=== PATIENT | female | born 1940 | race Caucasian/White ===

== ENCOUNTER 2016-07-03 09:42 | Inpatient (IN) ==
[2016-07-03] MEDS ORDERED: Albuterol 2.5 MG/3 ML NEBULIZER IH ONE (10:11)
[2016-07-03] MEDS ORDERED: methylPREDNISolone 125 MG/2 ML VIAL IVP ONE (10:11)
[2016-07-03] MEDS ORDERED: Ipratropium/Albuterol Neb 3 ML IH ONE (10:11)
[2016-07-03 10:27] LABS: Hematocrit 42.3 % (35.3-44.9); Hemoglobin 14.1 g/dL (11.5-15.4); Mean Corpuscular HGB Conc 33.3 g/dL (31.6-35.5); Mean Corpuscular Hemoglobin 28.6 pg (28.0-33.3); Mean Corpuscular Volume 85.8 fL (83.0-100.0); Mean Platelet Volume 9.5 fL (9.4-12.4); Platelet Count 243 K/mcL (140-400); Red Blood Count 4.93 M/mcL (3.82-4.97); Red Cell Distribution Width 13.5 % (11.5-14.5)
--- NOTE | 2016-07-03 10:28 | Emergency Department Note ---
Disposition Clinical Impression: Acute exacerbation of chronic obstructive airways disease Dyspnea Qualifiers: Dyspnea type: dyspnea on exertion Qualified Code(s): R06.09 - Other forms of dyspnea Disposition: Home, Self-Care Condition: Good Time of Disposition: 11:45 SOB HPI - General Chief Complaint: ED Shortness of Breath/Dyspnea Stated Complaint: cough,varinder Time Seen by Provider: 07/03/16 09:53 Source: patient Limitations: no limitations Nursing Notes Reviewed: Yes Vital Signs Reviewed: Yes - History of Present Illness 75-year-old female presents with concerns of increasing shortness of breath and cough. Patient states symptoms have worsened over the past week however she has been increasingly short of breath over the past 2 months. Patient was seen in urgent care yesterday, had a chest x-ray which showed vascular congestion. Patient was given IM Rocephin, IM Solu-Medrol, started on a Medrol Dosepak as well as a Z-Sathish. She has taken 1 dose of azithromycin but did not start the Medrol Dosepak. Patient states that she feels the same as she did yesterday but does not feels improved which is why she wanted to be evaluated in the emergency department. Pt denies chest pain, palpitations, nausea, diaphoresis. Patient is able to lay flat at night without difficulty. + Mild bilateral trace pitting edema. Patient smoked many years ago but not recently. No history of COPD. - Related Data Home Medications Medication Instructions Recorded Confirmed Aspirin 81 mg PO DAILY 11/18/14 07/03/16 Citalopram [CeleXA] 20 mg PO BID 11/18/14 07/03/16 Hydrochlorothiazide [Microzide] 12.5 mg PO QAM 11/18/14 07/03/16 Metoprolol [Lopressor] 100 mg PO BID 11/18/14 07/03/16 Omeprazole [PriLOSEC] 40 mg PO BID 11/18/14 07/03/16 Azithromycin [Azithromycin 6-Tab 250 mg PO PER PKG DI 07/03/16 07/03/16 Pack] MethylPREDNISolone 4 mg PO AD 07/03/16 07/03/16 [MethylPREDNISolone Dose Pack] Tramadol HCl [Ultram] 50 mg PO BID PRN 07/03/16 07/03/16 Allergies Allergy/AdvReac Type Severity Reaction Status Date / Time sleep medication AdvReac See Uncoded 01/04/16 15:27 Comments All systems ED: reviewed and negative except as stated. Constitutional: Reports: weakness. Denies: fever, chills Cardiovascular: Denies: chest pain, palpitations, dyspnea on exertion Respiratory: Reports: cough, dyspnea, wheezes Past Medical History - Past Medical History Attestation: Yes The following information was validated with the patient. Source: patient Medical history: Reports: arthritis, atrial fibrillation, GERD, other Surgical history: Reports: appendectomy, cholecystectomy, hysterectomy, knee replacement, other Psychiatric history: Reports: depression - Social History Smoking Status: Former smoker Smokeless Tobacco Status: No Alcohol use: Reports: none Drug use: Reports: none Physical Exam General: Alert and in no acute distress Skin: Warm, dry, intact Head: Normocephalic and atraumatic Neck: Supple, trachea midline and no tenderness Cardiovascular: RRR, no murmur, normal perfusion. Trace bilateral pitting edema Respiratory: Wheezing and rhonchi present in the bilateral posterior lung omalley Musculoskeletal: Normal strength, no tenderness, swelling or deformity GI: Soft, nontender, nondistended. Bowel sounds present Neuro: A&O to person, place, time and situation. No focal deficits noted on exam Psychiatric: cooperative and appropriate mood and affect. - General Limitations: no limitations General appearance: alert, in no apparent distress Course Vital Signs Temperature 97.8 F 07/03/16 09:44 Pulse Rate 97 07/03/16 09:44 Respiratory Rate 19 07/03/16 09:44 Blood Pressure 96/63 07/03/16 09:44 O2 Sat by Pulse Oximetry 91 07/03/16 09:44 Temperature 97.9 F 07/03/16 18:48 Pulse Rate 92 07/03/16 18:48 Respiratory Rate 23 07/03/16 18:48 Blood Pressure 121/76 07/03/16 18:48 O2 Sat by Pulse Oximetry 95 07/03/16 18:48 Oxygen Delivery Oxygen Delivery Nasal Cannula Shortness of Breath/Dyspnea - [facility] Narrative Medical decision making narrative: Patient breathing improved after treatment with DuoNeb. However now patient has audible wheezing during examination. Patient satting 88% and is visibly dyspneic during conversation. No accessory muscle seen however patient will likely need admission to the hospital for further evaluation of likely COPD exacerbation. Patient felt comfortable with this plan. She was given Solu- Medrol in the emergency department. - Medical Records Medical records reviewed: Yes I reviewed the patient's medical records. - Lab Data Lab results reviewed: Yes I reviewed the patient's lab results. Result diagrams: 07/03/16 10:20 07/03/16 10:20 Lab Results 07/03/16 07/03/16 07/03/16 Range/Units 10:20 10:20 10:20 WBC 9.0 (4.3-11.1) K/mcL RBC 4.93 (3.82-4.97) M/mcL Hgb 14.1 (11.5-15.4) g/dL Hct 42.3 (35.3-44.9) % MCV 85.8 (83.0-100.0) fL MCH 28.6 (28.0-33.3) pg MCHC 33.3 (31.6-35.5) g/dL RDW 13.5 (11.5-14.5) % Plt Count 243 (140-400) K/mcL MPV 9.5 (9.4-12.4) fL Seg Neutrophils % 88.0 % Band Neutrophils % 6.0 H (0-4) % Lymphocytes % 4.0 % Monocytes % 2.0 % Neutrophils # 8.5 (1.6-8.9) K/mcL Lymphocytes # 0.4 L (0.6-4.6) K/mcL Monocytes # 0.2 (0.0-1.3) K/mcL Platelet Estimate Normal (Normal) Sodium 136 (136-145) mEq/L Potassium 3.3 L (3.5-4.5) mEq/L Chloride 96 L (98-109) mEq/L Carbon Dioxide 25 (19-29) mEq/L BUN 15 (7-20) mg/dL Creatinine 0.81 (0.57-1.11) mg/dL Est GFR ( Amer) > 60 (> 60) Est GFR (Non-Af Amer) > 60 (> 60) BUN/Creatinine Ratio 19 (6-26) Glucose 138 H (70-99) mg/dL Calculated Osmolality 285 (280-300) Calcium 8.9 (8.6-10.8) mg/dL Troponin I 0.00 (0-0.03) ng/mL B-Natriuretic Peptide (0-100) pg/mL 07/03/16 Range/Units 10:20 WBC (4.3-11.1) K/mcL RBC (3.82-4.97) M/mcL Hgb (11.5-15.4) g/dL Hct (35.3-44.9) % MCV (83.0-100.0) fL MCH (28.0-33.3) pg MCHC (31.6-35.5) g/dL RDW (11.5-14.5) % Plt Count (140-400) K/mcL MPV (9.4-12.4) fL Seg Neutrophils % % Band Neutrophils % (0-4) % Lymphocytes % % Monocytes % % Neutrophils # (1.6-8.9) K/mcL Lymphocytes # (0.6-4.6) K/mcL Monocytes # (0.0-1.3) K/mcL Platelet Estimate (Normal) Sodium (136-145) mEq/L Potassium (3.5-4.5) mEq/L Chloride (98-109) mEq/L Carbon Dioxide (19-29) mEq/L BUN (7-20) mg/dL Creatinine (0.57-1.11) mg/dL Est GFR ( Amer) (> 60) Est GFR (Non-Af Amer) (> 60) BUN/Creatinine Ratio (6-26) Glucose (70-99) mg/dL Calculated Osmolality (280-300) Calcium (8.6-10.8) mg/dL Troponin I (0-0.03) ng/mL B-Natriuretic Peptide 178 H (0-100) pg/mL - Radiology Data Radiology results reviewed: Yes I reviewed the patient's radiology results. - EKG Data EKG attestation: Yes I reviewed and interpreted this EKG. EKG results narrative: ECG - interpreted by ED physician. Rate 97 atrial fibrillation, no STEMI
[2016-07-03 10:40] LABS: BUN/Creatinine Ratio 19 (6-26); Blood Urea Nitrogen 15 mg/dL (7-20); Calcium 8.9 mg/dL (8.6-10.8); Carbon Dioxide 25 mEq/L (19-29); Chloride 96 mEq/L (98-109); Glucose 138 mg/dL (70-99); Osmolality,Calculated 285 (280-300); Potassium 3.3 mEq/L (3.5-4.5); Sodium 136 mEq/L (136-145); eGFR For African Americans > 60 (> 60); eGFR For Non-African Americans > 60 (> 60)
[2016-07-03 10:52] LABS: Lymphocytes # 0.4 K/mcL (0.6-4.6); Monocytes # 0.2 K/mcL (0.0-1.3); Neutrophils # 8.5 K/mcL (1.6-8.9); Platelet Estimate Normal (Normal)
[2016-07-03] MEDS ORDERED: Naloxone 0.4 MG/ML INJ IVP PRN (12:29)
[2016-07-03] MEDS ORDERED: *HR* OxyCODONE/APAP 5/325 TABLET PO PRN (12:30)
--- NOTE | 2016-07-03 13:29 | Internal Med History&Physical ---
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 followed by Dr. Maxwell, last visit was on 02/13/16. she has been under observation. CT abdomen was negative for any metastatic disease. Octreotide scan was negative. She also has theron lung nodules stable. given recent worsening of dyspnea with no prior history of COPD or asthma or CHF, would repeat the CT chest as planned by oncology in the last visit. We will consult as needed. (2) Dyspnea Current visit: Yes Status: Acute unclear etiology. CXR shows features of bronchitis, she has no h.o COPD or asthma and has a very remote history of smoking. she has h/o carcinoid lung, unclear if this is a flare up will order CT chest, order urine 5 hydroxy indole acetic acid/chromogranin levels. consult oncology based on these lab results. for now, will continue duonebs as scheduled. I dont think she needs IV steroids at this time, unclear if COPD/asthma , will have to be a new diagnosis now as she does not have prior history. will check CT chest results first. will order flu test and respiratory panel as well/ continue oxygen at 2 l to maintain sats>95%. Qualifiers: Dyspnea type: dyspnea on exertion Qualified Code(s): R06.09 - Other forms of dyspnea Internal Medicine - H&P: HPI Chief complaint: sob Admitted From: Home Plans for Post Hospital Care: Home History of present illness: Ms. Fenton is a 75 year old female with past medical history of carcinoid lung with right infrahilar mass, follows with oncology, last visit was 6 months ago. Patient presented with symptoms of shortness of breath for the last 2-3 days which has increased . symptoms have worsened over the past week however she has been increasingly short of breath over the past 2 months with BURRIS. Patient was seen in urgent care yesterday, had a chest x-ray which showed vascular congestion. Patient was given IM Rocephin, IM Solu-Medrol, started on a Medrol Dosepak as well as a Z-Sathish. She has taken 1 dose of azithromycin but did not start the Medrol Dosepak. Patient states that she feels the same as she did yesterday but does not feel improved which is why she wanted to be evaluated in the emergency department. Pt denies chest pain, palpitations, nausea, diaphoresis. Patient is able to lay flat at night without difficulty. Patient smoked many years ago but not recently. No history of COPD or asthma or CHF. Past Med Surg Social Fam HX - Past Medical History Medical history: arthritis, atrial fibrillation, cancer, GERD, other Psychiatric history: depression - Past Surgical History Surgical History: appendectomy, cholecystectomy, hysterectomy, knee replacement , other - Social History Smoking Status: Former smoker Smokeless Tobacco Status: No Alcohol use: none Drug use: none - Family History Mother Living Status: Age at : 92 Hx Family Endocrine Disorder: Yes Hx Family Neurologic Disorders: Yes Internal Medicine - H&P: Meds Aspirin 81 mg PO DAILY 11/18/14 [History] Citalopram [CeleXA] 20 mg PO BID 11/18/14 [History] Hydrochlorothiazide [Microzide] 12.5 mg PO QAM 11/18/14 [History] Metoprolol [Lopressor] 100 mg PO BID 11/18/14 [History] Omeprazole [PriLOSEC] 40 mg PO BID 11/18/14 [History] Azithromycin [Azithromycin 6-Tab Pack] 250 mg PO PER PKG DI 07/03/16 [History] MethylPREDNISolone [MethylPREDNISolone Dose Pack] 4 mg PO AD 07/03/16 [History] Tramadol HCl [Ultram] 50 mg PO BID PRN 07/03/16 [History] Allergies sleep medication Adverse Reaction (Uncoded 01/04/16 15:27) See Comments otc sleep medication reaction in the past unknown All Systems PM: A 10-system review of systems was performed and is negative for pertinent findings except as documented above in the HPI. - Constitutional Constitutional: no chills, no fever(s), no night sweats - EENT Eyes: no change in vision, no discharge, no pain, no photophobia Ears: no ear discharge, no ear pain, no tinnitus Nose, mouth and throat: no dysphagia, no nasal discharge, no neck pain, no sore throat - Cardiovascular Cardiovascular ROS IM: no chest pain, no diaphoresis, no dyspnea, no lightheadedness, no palpitations, no syncope - Respiratory Respiratory: cough, dyspnea, dyspnea on exertion - Gastrointestinal Gastrointestinal: no abdominal pain, no diarrhea, no hematemesis, no hematochezia, no melena, no nausea, no vomiting - Genitourinary Genitourinary: no change in urinary stream, no dysuria, no flank pain, no hematuria - Constitutional Vitals: Temp Pulse Resp BP Pulse Ox 97.8 F 115 18 113/60 96 07/03/16 13:24 07/03/16 13:24 07/03/16 13:24 07/03/16 13:24 07/03/16 13:24 General appearance: Present: mild distress, A&O X 3 Exam: Skin: Warm, dry, intact Head: Normocephalic and atraumatic Neck: Supple, trachea midline and no tenderness Cardiovascular: RRR, no murmur, Respiratory: coarse breath sounds present bilateral , no wheezing. Musculoskeletal: Normal strength, no tenderness, swelling or deformity GI: Soft, nontender, nondistended. Bowel sounds present Neuro: A&O to person, place, time and situation. No focal deficits noted on exam Psychiatric: cooperative and appropriate mood and affect. Internal Med - H&P Results - Labs CBC & Chem 7: 07/03/16 10:20 07/03/16 10:20
[2016-07-03] MEDS ORDERED: Metoprolol 100 MG TABLET PO STA (13:34)
[2016-07-03] MEDS: Ipratropium/Albuterol Neb 3 ML IH SCH ×4 (14:25→23:34)
[2016-07-03 17:00] LABS: Adenovirus Not Detected (Not Detect); Bordetella Pertussis Not Detected (Not Detect); Chlamydophila pneumoniae Not Detected (Not Detect); Coronavirus 229E Not Detected (Not Detect); Coronavirus HKU1 Not Detected (Not Detect); Coronavirus NL63 Not Detected (Not Detect); Coronavirus OC43 Not Detected (Not Detect); Human Metapneumovirus Not Detected (Not Detect); Human Rhinovirus/Enterovirus Not Detected (Not Detect); Influenza A Subtype 2009 H1 Not Detected (Not Detect); Influenza A Untypeable Not Detected (Not Detect); Mycoplasma pneumoniae Not Detected (Not Detect); Parainfluenza Virus 1 Not Detected (Not Detect); Parainfluenza Virus 2 Not Detected (Not Detect); Parainfluenza Virus 3 Not Detected (Not Detect); Parainfluenza Virus 4 Not Detected (Not Detect); Respiratory Syncytial Virus Not Detected (Not Detect)
[2016-07-03 17:01] LABS: Influenza B ***DETECTED*** (Not Detect)
[2016-07-03] MEDS: *HR* Heparin 5,000 UNIT/ML VIAL SQ SCH (17:29)
[2016-07-03] MEDS ORDERED: Levofloxacin 750 MG/150 ML 750 MG/150 ML BAG IVPB SCH (18:00)
[2016-07-03] MEDS: Metoprolol 100 MG TABLET PO SCH (21:43)
[2016-07-03] MEDS: ALPRAZolam 0.5 MG TABLET PO SCH (21:43)
[2016-07-03] MEDS: Levofloxacin 750 MG/150 ML 750 MG/150 ML BAG IVPB SCH (21:43)
[2016-07-04] MEDS: Ipratropium/Albuterol Neb 3 ML IH SCH ×5 (03:27→20:30)
[2016-07-04 04:51] LABS: Basophils % 0.4 %; Hematocrit 43.4 % (35.3-44.9); Hemoglobin 13.9 g/dL (11.5-15.4); Immature Granulocytes % 2.3 % (0-4); Lymphocytes # 1.3 K/mcL (0.6-4.6); Lymphocytes % 13.8 %; Mean Corpuscular Hemoglobin 28.3 pg (28.0-33.3); Mean Corpuscular Volume 88.4 fL (83.0-100.0); Mean Platelet Volume 9.7 fL (9.4-12.4); Monocytes # 0.8 K/mcL (0.0-1.3); Monocytes % 7.9 %; Neutrophils # 7.3 K/mcL (1.6-8.9); Platelet Count 273 K/mcL (140-400); Red Blood Count 4.91 M/mcL (3.82-4.97); Red Cell Distribution Width 13.6 % (11.5-14.5); Segmented Neutrophils % 75.6 %
[2016-07-04 05:10] LABS: BUN/Creatinine Ratio 25 (6-26); Blood Urea Nitrogen 23 mg/dL (7-20); Calcium 9.3 mg/dL (8.6-10.8); Carbon Dioxide 28 mEq/L (19-29); Chloride 93 mEq/L (98-109); Glucose 132 mg/dL (70-99); Osmolality,Calculated 286 (280-300); Potassium 3.2 mEq/L (3.5-4.5); Sodium 135 mEq/L (136-145); eGFR For African Americans > 60 (> 60); eGFR For Non-African Americans 59 (> 60)
[2016-07-04] MEDS ORDERED: *HR* Metoprolol 5 MG/5 ML VIAL IVP ONE (05:27)
[2016-07-04] MEDS: *HR* Heparin 5,000 UNIT/ML VIAL SQ SCH (05:46)
[2016-07-04 05:50] LABS: Platelet Estimate Normal (Normal)
[2016-07-04 05:51] LABS: Reactive Lymphocytes Present (Not Present)
[2016-07-04] MEDS: Metoprolol 100 MG TABLET PO SCH ×2 (08:13→20:26)
[2016-07-04] MEDS: Aspirin 81 MG TAB.CHEW PO SCH (08:13)
[2016-07-04] MEDS: ALPRAZolam 0.5 MG TABLET PO SCH (08:13)
--- NOTE | 2016-07-04 10:29 | Internal Med Progress Note ---
<Bob More - Last Filed: 07/04/16 11:18> Date of Encounter: 07/04/16 Time of Encounter: 10:27 - Assessment and plan (1) Influenza, bronchopneumonia Current Visit: Yes Status: Acute Assessment and plan: Patient presented with dyspnea, found to have influenza B. Chest CT demonstrates bilateral bronchial thickening. Plan: - Continue Tamiflu - Continue Levaquin 750 daily - Prednisone 40 mg by mouth daily - Continue scheduled breathing treatments (2) Carcinoid bronchial adenoma of right lung Current Visit: No Status: Chronic Assessment and plan: h/o well-differentiated carcinoid diagnosed after a bronchoscopic biopsy of the left infrahilar mass measuring 2.6 cm in size with scattered bilateral pulmonary nodules. followed by Dr. Maxwell, last visit was on 02/13/16. she has been under observation. CT abdomen was negative for any metastatic disease. Octreotide scan was negative. She also has theron lung nodules stable. (3) Hypokalemia Current Visit: Yes Status: Acute Assessment and plan: Potassium 3.2 this morning. Plan: - 40 mg by mouth potassium twice a day 2 doses. (4) Type 2 diabetes mellitus Current Visit: Yes Status: Acute Assessment and plan: Patient has not followed up with a primary care provider. Chart review demonstrates that she has a history of type 2 diabetes, current glucose levels are roughly 130s. Plan: - ACHS glucose checks - Low dose sliding scale - HgbA1c - May require starting home coverage. Qualifiers: Qualified Code(s): E11.9 - Type 2 diabetes mellitus without complications (5) Atrial fibrillation Current Visit: Yes Status: Acute Assessment and plan: Hx of atrial fibrillation. EKG demonstrates A-fib but rhythm is pretty regular. Only anticoagulation is ASA at home. No recent follow-up with primary care provider. Plan: - Continue ASA - Continue Telemetry - Continue rate control - We will likely need anticoagulation. Qualifiers: Qualified Code(s): I48.91 - Unspecified atrial fibrillation - Subjective Interval history: Ms. Fenton 75yo F seen evaluate a patient bedside this morning. She is resting and says that she had difficulty sleeping last night which is not uncommon. She feels that she is very wheezy and has been the last several days. She denies any productive cough or discolored sputum. She denies any abdominal pain nausea vomiting diarrhea. She says that 3 years ago she was diagnosed with carcinoid bronchial adenoma of the right long with diffuse nodules along. She desires any new or changing symptoms-her current state. - Constitutional Vitals: Temp Pulse Resp BP Pulse Ox 98.3 F 118 20 119/73 94 07/04/16 06:39 07/04/16 06:39 07/04/16 06:39 07/04/16 06:39 07/04/16 06:39 General appearance: Present: mild distress, A&O X 3 - Head Head exam: Present: atraumatic, normocephalic - Eye Eye exam: Present: PERRL, conjuntiva pink, sclera anicteric Pupils: Present: PERRL - ENT ENT exam: Present: mucous membranes moist - Neck Neck exam general surgery: Present: supple, trachea midline. Absent: lymphadenopathy - Respiratory Additional comments: Diffuse coarse breath sounds with inspiratory expiratory wheezing with prolonged expiratory phase. - Cardiovascular Cardiovascular exam: Present: RRR, +S1, +S2. Absent: diastolic murmur, gallop, rubs, systolic murmur - GI/Abdominal GI/Abdominal exam: Present: normal bowel sounds, soft, no peritoneal signs. Absent: distended, tenderness - Extremities Exam Additional comments: Right foot and amezquita have trace edema. 2+ bilateral dorsal pedal, posterior tibial and radial pulses; Equal bilaterally. Patient is moving all 4 extremities spontaneously without restriction. - Neurological Exam Neurological exam: Present: alert, normal gait, no focal deficits - Psychiatric Psychiatric exam: Present: normal affect, normal mood Internal Medicine: Result - Labs CBC & Chem 7: 07/04/16 04:24 07/04/16 04:24 Labs: Short CBC 07/04/16 Range/Units 04:24 WBC 9.6 (4.3-11.1) K/mcL Hgb 13.9 (11.5-15.4) g/dL Hct 43.4 (35.3-44.9) % Plt Count 273 (140-400) K/mcL Neutrophils # 7.3 (1.6-8.9) K/mcL BMP 07/04/16 04:24 Sodium 135 L Potassium 3.2 L Chloride 93 L Carbon Dioxide 28 BUN 23 H Creatinine 0.93 Glucose 132 H Calcium 9.3 - Impressions Impressions Chest CT 07/03/16 14:30 IMPRESSION: Interval development of juxtapleural 1.2 cm noncalcified nodule within the posterior right lung apex. Although this finding may be inflammatory, carcinoid should be excluded given patient's history of pulmonary carcinoma. Short-term follow-up is recommended. Interval development of small left pleural effusion and patchy superior segment left lower lobe airspace disease, likely inflammatory. Again, short-term follow-up following treatment aspect Multiple bilateral stable pulmonary nodules measuring up to 1.5 cm in the left lung apex. D/ / Anna Simental Cha, MD / Anna Simental Cha, MD Interpreting Provider: Anna Simental Cha, MD Consult Discharge Plan - Plan Referrals: Jessica Heredia CNP [Primary Care Provider] - <Rocky Medrano - Last Filed: 07/04/16 18:24> Date of Encounter: 07/04/16 - Constitutional Vitals: Temp Pulse Resp BP Pulse Ox 98.1 F 109 20 141/91 100 07/04/16 15:29 07/04/16 15:29 07/04/16 15:29 07/04/16 15:29 07/04/16 15:29 Internal Medicine: Result - Labs CBC & Chem 7: 07/04/16 04:24 07/04/16 04:24 Labs: Short CBC 07/04/16 Range/Units 04:24 WBC 9.6 (4.3-11.1) K/mcL Hgb 13.9 (11.5-15.4) g/dL Hct 43.4 (35.3-44.9) % Plt Count 273 (140-400) K/mcL Neutrophils # 7.3 (1.6-8.9) K/mcL BMP 07/04/16 04:24 Sodium 135 L Potassium 3.2 L Chloride 93 L Carbon Dioxide 28 BUN 23 H Creatinine 0.93 Glucose 132 H Calcium 9.3 - Attending Attestation I examined this patient and my medical decision-making was reviewed with the EMERGING TECHNOLOGIES DIRECTOR/PA/Advanced Practice Nurse/Resident Physician. I agree with the documented findings, disposition and treatment plan as described except to the extent set forth below. Continue with levaquin and tamiflu. add steroids. correct potassium, monitor electrolytes.
[2016-07-04] MEDS ORDERED: D5% in Water 1,000 ML IVC PRN (11:22)
[2016-07-04] MEDS ORDERED: Dextrose Gel 15 GM PO PRN ×2 (11:22)
[2016-07-04] MEDS ORDERED: *HR* Dextrose 50 % in Water (Syg) 50 ML SYRINGE IVP PRN (11:22)
[2016-07-04] MEDS ORDERED: ALPRAZolam 0.5 MG TABLET PO PRN (13:05)
[2016-07-04] MEDS ORDERED: *HR* OxyCODONE/APAP 5/325 TABLET PO PRN (13:05)
[2016-07-04] MEDS ORDERED: traMADol 50 MG TABLET PO PRN (13:07)
[2016-07-04] MEDS: Insulin LISPRO 300 UNITS/3 ML VIAL SQ SCH ×3 (14:28→20:27)
[2016-07-04] MEDS: predniSONE 20 MG TABLET PO SCH (16:01)
--- NOTE | 2016-07-04 17:30 | Electrocardiograph Report ---
[place] [id number] Test Date: 2016-07-03 Pat Name: Lucy Fenton Department: 103 Room: 2A42 Gender: F [employer] Farmworker: SHAHRIAR : 1940 Requested By: Brenden Hooks Order Number: [id number] Reading MD: Demetrice Gu Measurements Intervals [place] Rate: 97 P: AL: 0 QRS: 38 QRSD: 83 T: 30 QT: 361 QTc: 415 Interpretive Statements ATRIAL FIBRILLATION NONSPECIFIC T-WAVE ABNORMALITY ABNORMAL RHYTHM ECG Electronically Signed On 07-04-2016 17:29:12 EDT by Demetrice Gu
[2016-07-04] MEDS: Levofloxacin 750 MG/150 ML 750 MG/150 ML BAG IVPB SCH (23:12)
[2016-07-05] MEDS: Ipratropium/Albuterol Neb 3 ML IH SCH ×7 (00:17→23:48)
[2016-07-05] MEDS: *HR* Enoxaparin 40 MG/0.4 ML SYRINGE SQ SCH (05:26)
[2016-07-05 06:35] LABS: Hematocrit 41.3 % (35.3-44.9); Hemoglobin 13.2 g/dL (11.5-15.4); Mean Corpuscular Volume 87.5 fL (83.0-100.0); Mean Platelet Volume 9.6 fL (9.4-12.4); Platelet Count 269 K/mcL (140-400); Red Blood Count 4.72 M/mcL (3.82-4.97); Red Cell Distribution Width 13.8 % (11.5-14.5)
[2016-07-05 06:50] LABS: Alanine Aminotransferase 17 Units/L (0-55); Albumin 2.6 g/dL (3.5-5.0); Albumin/Globulin Ratio 0.7 (1.1-2.2); Alkaline Phosphatase 62 Units/L (38-126); Aspartate Amino Transferase 25 Units/L (5-34); BUN/Creatinine Ratio 31 (6-26); Bilirubin,Total 0.3 mg/dL (0.2-1.2); Blood Urea Nitrogen 27 mg/dL (7-20); Calcium 9.5 mg/dL (8.6-10.8); Carbon Dioxide 27 mEq/L (19-29); Chloride 99 mEq/L (98-109); Globulin 3.6 g/dL (2.4-3.5); Glucose 106 mg/dL (70-99); Osmolality,Calculated 288 (280-300); Sodium 136 mEq/L (136-145); Total Protein 6.2 g/dL (6.0-8.3); eGFR For African Americans > 60 (> 60); eGFR For Non-African Americans > 60 (> 60)
[2016-07-05 06:52] LABS: Potassium 4.6 mEq/L (3.5-4.5)
[2016-07-05 07:36] LABS: Lymphocytes # 1.4 K/mcL (0.6-4.6); Neutrophils # 7.5 K/mcL (1.6-8.9); Platelet Estimate Normal (Normal); Reactive Lymphocytes Present (Not Present)
[2016-07-05] MEDS: Aspirin 81 MG TAB.CHEW PO SCH (08:27)
[2016-07-05] MEDS: Metoprolol 100 MG TABLET PO SCH ×2 (08:28→21:34)
[2016-07-05] MEDS: predniSONE 20 MG TABLET PO SCH (08:28)
[2016-07-05] MEDS: Insulin LISPRO 300 UNITS/3 ML VIAL SQ SCH ×4 (08:30→21:46)
--- NOTE | 2016-07-05 15:01 | Internal Med Progress Note ---
<Bob More - Last Filed: 07/05/16 14:59> Date of Encounter: 07/05/16 Time of Encounter: 14:59 - Assessment and plan (1) Influenza, bronchopneumonia Current Visit: Yes Status: Acute Assessment and plan: Patient presented with dyspnea, found to have influenza B. Chest CT demonstrates bilateral bronchial thickening. Plan: - Continue Tamiflu - Continue Levaquin 750 daily - Prednisone 40 mg by mouth daily - Continue scheduled breathing treatments (2) Carcinoid bronchial adenoma of right lung Current Visit: No Status: Chronic Assessment and plan: h/o well-differentiated carcinoid diagnosed after a bronchoscopic biopsy of the left infrahilar mass measuring 2.6 cm in size with scattered bilateral pulmonary nodules. followed by Dr. Maxwell, last visit was on 02/13/16. she has been under observation. CT abdomen was negative for any metastatic disease. Octreotide scan was negative. She also has theron lung nodules stable. (3) Hypokalemia Current Visit: Yes Status: Acute Assessment and plan: Potassium corrected. Plan: - No obvious sources of potassium loss at this time. - Monitor with a.m. lab. (4) Atrial fibrillation Current Visit: Yes Status: Acute Assessment and plan: Hx of atrial fibrillation. EKG demonstrates A-fib but rhythm is pretty regular. Only anticoagulation is ASA at home. No recent follow-up with primary care provider. Plan: - Continue ASA - Continue Telemetry - Continue rate control Qualifiers: Qualified Code(s): I48.91 - Unspecified atrial fibrillation (5) Hyperglycemia Current Visit: Yes Status: Acute Assessment and plan: Patient is a history of hyperglycemia with a current hemoglobin A1c of 6.0, not on any home anti-hyperglycemic medications. Plan: - Continue ACHS glucose checks - Continue low-dose sliding scale as needed. - Subjective Interval history: Ms. Fenton 75yo F seen evaluate a patient bedside this morning. She is sitting up at bedside in no acute distress. She says she still feels a little wheezy but her breathing is much improved since admission. She denies any coughing, sputum production or other concerning factors. She is eating, drinking, producing bowel movements and urine. Feels much improved. - Constitutional Vitals: Temp Pulse Resp BP Pulse Ox 98.1 F 102 19 128/78 96 07/05/16 11:44 07/05/16 11:44 07/05/16 11:44 07/05/16 11:44 07/05/16 11:44 General appearance: Present: mild distress, A&O X 3 - Head Head exam: Present: atraumatic, normocephalic - Eye Eye exam: Present: PERRL, conjuntiva pink, sclera anicteric Pupils: Present: PERRL - ENT ENT exam: Present: mucous membranes moist - Neck Neck exam general surgery: Present: supple, trachea midline. Absent: lymphadenopathy - Respiratory Respiratory exam: Present: wheezes (Diffusely with coarse breath sounds.) - Cardiovascular Cardiovascular exam: Present: RRR, +S1, +S2. Absent: diastolic murmur, gallop, rubs, systolic murmur - GI/Abdominal GI/Abdominal exam: Present: normal bowel sounds, soft, no peritoneal signs. Absent: distended, tenderness - Extremities Exam Extremities exam: Present: warm, radial pulses palpable and symetrical. Absent : calf tenderness, cyanotic, pedal edema - Neurological Exam Neurological exam: Present: CN II-XII intact, oriented X3, no focal deficits. Absent: pronater drift, facial droop, speech deficit - Psychiatric Psychiatric exam: Present: normal affect, normal mood Internal Medicine: Result - Labs CBC & Chem 7: 07/05/16 05:59 07/05/16 05:59 Labs: Short CBC 07/05/16 Range/Units 05:59 WBC 10.1 (4.3-11.1) K/mcL Hgb 13.2 (11.5-15.4) g/dL Hct 41.3 (35.3-44.9) % Plt Count 269 (140-400) K/mcL Neutrophils # 7.5 (1.6-8.9) K/mcL BMP 07/05/16 05:59 Sodium 136 Potassium 4.6 H D Chloride 99 Carbon Dioxide 27 BUN 27 H Creatinine 0.88 Glucose 106 H Calcium 9.5 Liver Function 07/05/16 Range/Units 05:59 Total Bilirubin 0.3 (0.2-1.2) mg/dL AST 25 (5-34) Units/L ALT 17 (0-55) Units/L Alkaline Phosphatase 62 (38-126) Units/L Albumin 2.6 L (3.5-5.0) g/dL Consult Discharge Plan - Plan Referrals: Yan,Jessica G, HOUSE FATHER [Primary Care Provider] - <Rocky Medrano - Last Filed: 07/05/16 18:40> Date of Encounter: 07/05/16 - Constitutional Vitals: Temp Pulse Resp BP Pulse Ox 98.0 F 104 18 132/74 96 07/05/16 16:16 07/05/16 16:16 07/05/16 16:16 07/05/16 16:16 07/05/16 16:16 Internal Medicine: Result - Labs CBC & Chem 7: 07/05/16 05:59 07/05/16 05:59 Labs: Short CBC 07/05/16 Range/Units 05:59 WBC 10.1 (4.3-11.1) K/mcL Hgb 13.2 (11.5-15.4) g/dL Hct 41.3 (35.3-44.9) % Plt Count 269 (140-400) K/mcL Neutrophils # 7.5 (1.6-8.9) K/mcL BMP 07/05/16 05:59 Sodium 136 Potassium 4.6 H D Chloride 99 Carbon Dioxide 27 BUN 27 H Creatinine 0.88 Glucose 106 H Calcium 9.5 Liver Function 07/05/16 Range/Units 05:59 Total Bilirubin 0.3 (0.2-1.2) mg/dL AST 25 (5-34) Units/L ALT 17 (0-55) Units/L Alkaline Phosphatase 62 (38-126) Units/L Albumin 2.6 L (3.5-5.0) g/dL - Attending Attestation I examined this patient and my medical decision-making was reviewed with the EXECUTIVE BUSINESS COACH/PA/Advanced Practice Nurse/Resident Physician. I agree with the documented findings, disposition and treatment plan as described except to the extent set forth below. Agree with Dr. Moer, continue with steroids, possible d/c tomorrow.
[2016-07-05] MEDS: Levofloxacin 750 MG/150 ML 750 MG/150 ML BAG IVPB SCH (21:34)
[2016-07-06] MEDS: Ipratropium/Albuterol Neb 3 ML IH SCH ×4 (04:34→15:48)
[2016-07-06 05:30] LABS: Hematocrit 40.9 % (35.3-44.9); Mean Corpuscular HGB Conc 31.8 g/dL (31.6-35.5); Mean Corpuscular Hemoglobin 28.5 pg (28.0-33.3); Mean Corpuscular Volume 89.7 fL (83.0-100.0); Mean Platelet Volume 9.4 fL (9.4-12.4); Platelet Count 257 K/mcL (140-400); Red Blood Count 4.56 M/mcL (3.82-4.97); Red Cell Distribution Width 13.8 % (11.5-14.5)
[2016-07-06] MEDS: *HR* Enoxaparin 40 MG/0.4 ML SYRINGE SQ SCH (05:31)
[2016-07-06 05:47] LABS: Alanine Aminotransferase 16 Units/L (0-55); Albumin 2.7 g/dL (3.5-5.0); Albumin/Globulin Ratio 0.8 (1.1-2.2); Alkaline Phosphatase 59 Units/L (38-126); Aspartate Amino Transferase 21 Units/L (5-34); BUN/Creatinine Ratio 27 (6-26); Bilirubin,Total 0.3 mg/dL (0.2-1.2); Blood Urea Nitrogen 21 mg/dL (7-20); Calcium 9.3 mg/dL (8.6-10.8); Carbon Dioxide 29 mEq/L (19-29); Chloride 99 mEq/L (98-109); Globulin 3.4 g/dL (2.4-3.5); Glucose 80 mg/dL (70-99); Osmolality,Calculated 286 (280-300); Sodium 137 mEq/L (136-145); Total Protein 6.1 g/dL (6.0-8.3); eGFR For African Americans > 60 (> 60); eGFR For Non-African Americans > 60 (> 60)
[2016-07-06 06:09] LABS: Lymphocytes # 2.9 K/mcL (0.6-4.6); Monocytes # 1.6 K/mcL (0.0-1.3); Neutrophils # 5.7 K/mcL (1.6-8.9); Platelet Estimate Normal (Normal)
[2016-07-06] MEDS: Insulin LISPRO 300 UNITS/3 ML VIAL SQ SCH ×2 (07:35→12:59)
[2016-07-06] MEDS: Metoprolol 100 MG TABLET PO SCH (07:39)
[2016-07-06] MEDS: predniSONE 20 MG TABLET PO SCH (07:39)
[2016-07-06] MEDS: Aspirin 81 MG TAB.CHEW PO SCH (07:39)
--- NOTE | 2016-07-06 10:06 | Discharge Summary ---
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 Fenton presented with dyspnea and has required nasal canula oxygen. She failed a 6 minute walk test with an oxygen saturation at rest of 77%, She requires home oxygen therapy at home and close follow up with PCP. (7) On home oxygen therapy Priority: Primary Status: Acute - Discharge Medications Prescriptions: Levofloxacin [Levaquin] 750 mg PO DAILY #4 tablet Oseltamivir [Tamiflu] 75 mg PO BID #4 capsule PredniSONE 40 mg PO DAILY 4 Days Home Medications: Aspirin 81 mg PO DAILY 11/18/14 [History] Citalopram [CeleXA] 20 mg PO BID 11/18/14 [History] Hydrochlorothiazide [Microzide] 12.5 mg PO QAM 11/18/14 [History] Metoprolol [Lopressor] 100 mg PO BID 11/18/14 [History] Omeprazole [PriLOSEC] 40 mg PO BID 11/18/14 [History] Tramadol HCl [Ultram] 50 mg PO BID PRN 07/03/16 [History] Levofloxacin [Levaquin] 750 mg PO DAILY #4 tablet 07/06/16 [Rx] Oseltamivir [Tamiflu] 75 mg PO BID #4 capsule 07/06/16 [Rx] PredniSONE 40 mg PO DAILY 4 Days 07/06/16 [Rx] Allergies/Adverse Reactions: Allergies sleep medication Adverse Reaction (Uncoded 01/04/16 15:27) See Comments otc sleep medication reaction in the past unknown Date of admission: 07/04/16 18:36 Primary care physician: Jessica Heredia CNP Discharging clinician: Bob More Anticipated date of discharge: 07/06/16 - Patient Status Disposition: Home, Self-Care Condition: Good Functional capacity at discharge: independent ambulation Overall status at discharge: patient is progressing back to baseline - Discharge Instructions Instructions: Prednisone (By mouth), Levofloxacin (By mouth), Oseltamivir (By mouth) Follow Up With: Jessica Heredia CNP [Primary Care Provider] - Additional Instructions: Complete antibiotics as prescribed Follow up with your PCP in the next 3-5 days. IF symptoms worsen or do not improve you should be seen and evaluated by your PCP or emergency department. - Diet and Activity Activity: increase activity as tolerated, wear oxygen at all times Diet: advance to your usual diet Interval History: Ms. Fenton is a 75 year old female with past medical history of carcinoid lung with right infrahilar mass, follows with oncology, presented to the emergency department with shortness of breath for 2-3 days and been progressing. She had been provided IM Rocephin IM Solu-Medrol and started on Medrol Dosepak as well as a Z-Sathish but only had taken 1 dose of azithromycin prior to evaluation [facility]. Upon arrival she was found to be hypoxic place nasal cannula oxygen and admitted to general medical floor found have influenza B and started on Tamiflu. Chest x-ray was concerning for bronchial congestion versus pneumonia and started on Levaquin. She continued to improve throughout her inpatient stay but still remained hypoxic without nasal Oxygen. On 07/06/2016 she was seen and evaluated and deemed stable for discharge with oxygen. She underwent a 6 minute walk test and prior to starting oxygen saturations were 77 % on room air. Is highly recommended that she wear her nasal cannula oxygen 24/ 7 while at home. She is also recommended close follow-up with her primary care provider. Patient is agreeable and discharged with appropriate prescriptions. Hospital course: Ms. Fenton is a 75 year old female - Time Spent with Patient Total time spent providing and/or coordinating discharge services: - Constitutional Vitals: Temp Pulse Resp BP Pulse Ox 97.7 F 96 18 141/95 77 07/06/16 06:38 07/06/16 06:38 07/06/16 07:51 07/06/16 06:38 07/06/16 07:59 General appearance: Present: mild distress, A&O X 3 - Head Head exam: Present: atraumatic, normocephalic - Eye Eye exam: Present: PERRL, conjuntiva pink, sclera anicteric Pupils: Present: PERRL - ENT ENT exam: Present: mucous membranes moist - Neck Neck exam general surgery: Present: supple, trachea midline. Absent: lymphadenopathy - Respiratory Respiratory exam: Present: wheezes (diffuse wheezing). Absent: accessory muscle use, rales, rhonchi - Cardiovascular Cardiovascular exam: Present: irregular rhythm. Absent: diastolic murmur, gallop, rubs, systolic murmur - GI/Abdominal GI/Abdominal exam: Present: normal bowel sounds, soft, no peritoneal signs. Absent: distended, tenderness - Extremities Exam Extremities exam: Present: warm, radial pulses palpable and symetrical. Absent : calf tenderness, cyanotic, pedal edema - Neurological Exam Neurological exam: Present: CN II-XII intact, oriented X3, no focal deficits. Absent: pronater drift, facial droop, speech deficit - Psychiatric Psychiatric exam: Present: normal affect, normal mood <Rocky Medrano - Last Filed: 07/06/16 17:30> Date of Encounter: 07/06/16 Date of admission: 07/04/16 18:36 Primary care physician: Jessica Heredia CNP Hospital course: Ms. Fenton is a 75 year old female - Time Spent with Patient Total time spent providing and/or coordinating discharge services: - Constitutional Vitals: Temp Pulse Resp BP Pulse Ox 97.7 F 101 18 139/91 97 07/06/16 10:56 07/06/16 10:56 07/06/16 15:49 07/06/16 10:56 07/06/16 15:49 - Attending Attestation I examined this patient and my medical decision-making was reviewed with the RELAY CHECKER/PA/Advanced Practice Nurse/Resident Physician. I agree with the documented findings, disposition and treatment plan as described except to the extent set forth below. Agree with Dr. More, for discharge today.
[2016-07-06 11:00] VITALS: BP 139/91
[2016-07-06] MEDS ORDERED: levoFLOXacin 500 MG TABLET PO SCH (20:00)
== END 2016-07-06 16:40 | disposition home or self-care (01) | DRG 194 ==
LOC: EMEROO 09:42 → 2ANU 09:42
PROVIDERS: ADMIT Internal Medicine Endocrinology, Diabetes & Metabolism; ATTEND Internal Medicine

== ENCOUNTER 2017-03-26 13:31 | Inpatient (IN) ==
[2017-03-26] MEDS ORDERED: Levofloxacin 750 MG/150 ML 750 MG/150 ML BAG IVPB ONE (16:52)
[2017-03-26 17:02] LABS: Basophils # 0.1 K/mcL (0.0-0.2); Basophils % 0.6 %; Eosinophils # 0.2 K/mcL (0.0-0.6); Eosinophils % 2.4 %; Hematocrit 44.4 % (35.3-44.9); Hemoglobin 13.9 g/dL (11.5-15.4); Immature Granulocytes % 0.8 % (0-4); Lymphocytes % 22.9 %; Mean Corpuscular HGB Conc 31.3 g/dL (31.6-35.5); Mean Corpuscular Hemoglobin 28.8 pg (28.0-33.3); Mean Corpuscular Volume 91.9 fL (83.0-100.0); Mean Platelet Volume 9.4 fL (9.4-12.4); Monocytes # 0.9 K/mcL (0.0-1.3); Monocytes % 10.1 %; Neutrophils # 5.5 K/mcL (1.6-8.9); Platelet Count 268 K/mcL (140-400); Red Blood Count 4.83 M/mcL (3.82-4.97); Red Cell Distribution Width 14.3 % (11.5-14.5); Segmented Neutrophils % 63.2 %
[2017-03-26 17:11] LABS: BUN/Creatinine Ratio 14 (6-26); Blood Urea Nitrogen 10 mg/dL (8-23); Calcium 9.3 mg/dL (8.6-10.3); Carbon Dioxide 31 mEq/L (23-29); Chloride 102 mEq/L (98-107); Glucose 111 mg/dL (70-105); Osmolality,Calculated 288 (280-300); Potassium 3.5 mEq/L (3.5-5.1); Sodium 139 mEq/L (136-145); eGFR For African Americans > 60 (> 60); eGFR For Non-African Americans > 60 (> 60)
--- NOTE | 2017-03-26 17:24 | Emergency Department Note ---
Disposition Clinical Impression: Atrial fibrillation with rapid ventricular response, SIRS (systemic inflammatory response syndrome) Dyspnea Qualifiers: Dyspnea type: dyspnea on exertion Qualified Code(s): R06.09 - Other forms of dyspnea Disposition: Admitted As Inpatient Condition: Good Referrals: Jessica Heredia HAND CARVER [Primary Care Provider] - Forms: ED Satisfaction Letter Time of Disposition: 19:52 General Adult HPI - General Chief complaint: ED Upper Respiratory Infection Stated complaint: Pneumonia possible Time Seen by Provider: 03/26/17 14:54 Source: patient Limitations: no limitations Nursing Notes Reviewed: Yes Vital Signs Reviewed: Yes - History of Present Illness HPI Narrative: 76-year-old female history of atrial fibrillation on baby aspirin presents to the ED for cough and congestion. Symptoms have been ongoing for the past week. She now has dyspnea on exertion. Reports productive cough with yellow-green sputum. She also reports some rhinorrhea and sinus congestion. No fevers or chills at home. No other sick contacts. No recent travel. Patient denies any chest pain. She does have history of lung cancer in the left she follows with oncologist Dr. Maxwell, not undergoing treatment at this time. She reports this is slow-growing over the past 3 years. Denies any history of blood clots. Does not take any anticoagulants. No recent hospitalizations. Last time she had similar symptoms she was diagnosed with pneumonia with the hospital admission of 4 days. States this feels similar to it. Patient is a former smoker. Denies history of COPD. No inhalers at home. She appears in no acute respiratory distress. She is slightly hypoxic 95%. She admits to being on home oxygen as needed and has been requiring it lately. Lung sounds are clear. Clinically patient has pneumonia. Due to her tachycardia will evaluate with CT of the [place] for possible pulmonary embolism secondary to her known malignancy. Lab work was ordered prior to my evaluation within normal troponin BNP without leukocytosis. Will treat with Levaquin at this time. Pain Scale: 3 - Related Data Home Medications Medication Instructions Recorded Confirmed Aspirin 81 mg PO DAILY 11/18/14 03/26/17 Citalopram [CeleXA] 20 mg PO BID 11/18/14 03/26/17 Hydrochlorothiazide [Microzide] 12.5 mg PO QAM 11/18/14 03/26/17 Metoprolol [Lopressor] 100 mg PO BID 11/18/14 03/26/17 Omeprazole [PriLOSEC] 40 mg PO BID 11/18/14 03/26/17 Tramadol HCl [Ultram] 50 mg PO BID PRN 07/03/16 03/26/17 Allergies Allergy/AdvReac Type Severity Reaction Status Date / Time sleep medication AdvReac See Uncoded 01/04/16 15:27 Comments All systems ED: reviewed and negative except as stated. Review of Systems: As Per HPI Constitutional: Denies: fever, chills ENT ED: Reports: congestion Cardiovascular: Reports: dyspnea on exertion. Denies: chest pain Respiratory: Reports: cough, dyspnea Gastrointestinal: Denies: abdominal pain, nausea, vomiting Genitourinary: Denies: urgency, dysuria Musculoskeletal: Denies: back pain, neck pain Integumentary: Denies: rash, abrasion Neurological: Denies: headache, weakness Past Medical History - Past Medical History Attestation: Yes The following information was validated with the patient. Source: patient Medical history: Reports: arthritis, atrial fibrillation, GERD, other Surgical history: Reports: appendectomy, cholecystectomy, hysterectomy, knee replacement, other Psychiatric history: Reports: depression - Social History Smoking Status: Former smoker Smokeless Tobacco Status: No Alcohol use: Reports: none Drug use: Reports: none Physical Exam - General Limitations: no limitations General appearance: alert, in no apparent distress - Head Head exam: atraumatic, normocephalic, normal inspection - Eye Eye exam: Present: normal appearance, PERRL, EOMI - ENT ENT exam: normal exam, normal oropharynx, mucous membranes moist - Expanded ENT Exam External ear exam: Present: normal external inspection Nose exam: rhinorrhea. negative: sinus tenderness Mouth exam: Present: normal external inspection, tongue normal Teeth exam: Present: normal inspection Throat exam: Present: normal inspection. Absent: tonsillar exudate, muffled voice - Neck Neck exam: Present: normal inspection, full ROM, trachea midline. Absent: tenderness, lymphadenopathy - Chest Chest inspection: Present: normal inspection, symmetric chest wall rise - Respiratory Respiratory exam: Present: normal lung sounds bilaterally. Absent: respiratory distress, wheezes - Cardiovascular Cardiovascular exam: Present: tachycardia, irregular rhythm, normal heart sounds - Abdominal Exam Abdominal exam: Present: soft, Non-Tender, normal bowel sounds. Absent: tenderness, distention, guarding, rebound, rigidity - Extremities Exam Extremities exam: Present: normal inspection, full ROM, normal capillary refill. Absent: tenderness, pedal edema, calf tenderness - Back Exam Back exam: Present: normal inspection, full ROM. Absent: tenderness - Neurological Exam Neurological exam: Present: alert, oriented X3 - Skin Skin exam: Present: warm, dry, intact, normal color. Absent: rash, cyanosis Course Course Narrative: 76-year-old female presents with cough congestion shortness of breath. Ongoing for the past week. Prior to my valuation chest x-ray basic labs ordered. Chest x-ray revealed noncalcified lung mass seen on prior examination likely her cancer who she follows up with oncology. Denies any other complaints. Vital signs she is afebrile but tachycardic. Oxygen saturation 95% on room air. She appears in no respiratory distress. She has a bronco spastic cough. Lungs sounds are clear bilaterally. EKG performed showed atrial fibrillation with rapid ventricular response 1 20 bpm. Patient takes baby aspirin and metoprolol at home without any recent changes. Suspect this is likely because of her symptoms. Given her cancer will also check CT of the chest for any pulmonary embolism. She will likely need admission. Levaquin for suspected community acquired pneumonia. Patients in agreement with this plan. Do not suspect acute coronary syndrome at this time. - Reevaluation(s) Reevaluation #1: After 5 mg of Lopressor her heart rate has come down to lower 100. Suspect her dyspnea is contributory to her atrial fibrillation rapid ventricular response. She continues to have a productive cough clinically this is no pneumonia. No radiologic evidence seen on the CT scan. She would benefit admission for further atrial fibrillation management and antibiotics. Patient is in agreement with this plan. Impression is SIRS, dyspnea, afib c RVR. - Consultations Consultation #1: Spoke with on-call hospitalist samantha Masters to admit for afib c RVR, clinical pneumonia, dyspnea on exertion, SIRS. No further orders at this time. Patient was given dose of Levaquin. Time: 20:09 Vital Signs Temperature 97.9 F 03/26/17 13:50 Pulse Rate 128 03/26/17 13:50 Respiratory Rate 18 03/26/17 13:50 Blood Pressure 110/77 03/26/17 13:50 O2 Sat by Pulse Oximetry 95 03/26/17 13:50 Temperature 97.9 F 03/26/17 13:50 Pulse Rate 112 03/26/17 20:00 Respiratory Rate 18 03/26/17 20:00 Blood Pressure 129/58 03/26/17 20:00 O2 Sat by Pulse Oximetry 98 03/26/17 20:00 Oxygen Delivery Oxygen Delivery Room Air Medical Decision Making - MDM Narrative Medical decision making narrative: Patient was discussed with my attending physician who agrees with ED management and final disposition. They independently evaluated the patient. Please refer to their attestation to this encounter for additional information. This note was generated by [employer] voice recognition software and as a result grammatical or spelling errors may occur using this program. - Medical Records Medical records reviewed: Yes I reviewed the patient's medical records. - Lab Data Lab results reviewed: Yes I reviewed the patient's lab results. Result diagrams: 03/26/17 16:43 03/26/17 16:43 Lab Results 03/26/17 03/26/17 03/26/17 Range/Units 16:43 16:43 16:43 WBC 8.6 (4.3-11.1) K/mcL RBC 4.83 (3.82-4.97) M/mcL Hgb 13.9 (11.5-15.4) g/dL Hct 44.4 (35.3-44.9) % MCV 91.9 (83.0-100.0) fL MCH 28.8 (28.0-33.3) pg MCHC 31.3 L (31.6-35.5) g/dL RDW 14.3 (11.5-14.5) % Plt Count 268 (140-400) K/mcL MPV 9.4 (9.4-12.4) fL Immature Gran % 0.8 (0-4) % Seg Neutrophils % 63.2 % Lymphocytes % 22.9 % Monocytes % 10.1 % Eosinophils % 2.4 % Basophils % 0.6 % Neutrophils # 5.5 (1.6-8.9) K/mcL Lymphocytes # 2.0 (0.6-4.6) K/mcL Monocytes # 0.9 (0.0-1.3) K/mcL Eosinophils # 0.2 (0.0-0.6) K/mcL Basophils # 0.1 (0.0-0.2) K/mcL Sodium 139 (136-145) mEq/L Potassium 3.5 (3.5-5.1) mEq/L Chloride 102 (98-107) mEq/L Carbon Dioxide 31 H (23-29) mEq/L BUN 10 (8-23) mg/dL Creatinine 0.72 (0.60-1.20) mg/dL Est GFR ( Amer) > 60 (> 60) Est GFR (Non-Af Amer) > 60 (> 60) BUN/Creatinine Ratio 14 (6-26) Glucose 111 H (70-105) mg/dL Calculated Osmolality 288 (280-300) Lactic Acid (0.5-2.2) mmol/L Calcium 9.3 (8.6-10.3) mg/dL Phosphorus Cancelled Magnesium Cancelled Total Bilirubin Cancelled Direct Bilirubin Cancelled Indirect Bilirubin Cancelled AST Cancelled ALT Cancelled Alkaline Phosphatase Cancelled Troponin I < 0.03 (< 0.04) ng/mL B-Natriuretic Peptide (Less than 100) pg/mL Serum Total Protein Cancelled Albumin Cancelled Globulin Cancelled Albumin/Globulin Ratio Cancelled Urine Color (Yellow) Urine Clarity (Clear) Urine pH (5.0-8.0) pH Units Ur Specific [place] (1.010-1.025) Urine Protein (Neg-Trace) mg/dL Urine Glucose (UA) (Normal) mg/dL Urine Ketones (Negative) mg/dL Urine Blood (Negative) Urine Nitrite (Negative) Urine Bilirubin (Negative) Urine Urobilinogen (Normal) mg/dL Ur Leukocyte Esterase (Negative) Urine Microscopic RBC (0-3) per hpf Urine Microscopic WBC (0-3) per hpf Ur Squamous Epith Cells (None-Few) per lpf Urine Bacteria (None-Few) per hpf Hyaline Casts (None-Few) per lpf Ur Culture Indicated? (NO) Specimen Rejected 03/26/17 03/26/17 03/26/17 Range/Units 16:43 17:15 17:15 WBC (4.3-11.1) K/mcL RBC (3.82-4.97) M/mcL Hgb (11.5-15.4) g/dL Hct (35.3-44.9) % MCV (83.0-100.0) fL MCH (28.0-33.3) pg MCHC (31.6-35.5) g/dL RDW (11.5-14.5) % Plt Count (140-400) K/mcL MPV (9.4-12.4) fL Immature Gran % (0-4) % Seg Neutrophils % % Lymphocytes % % Monocytes % % Eosinophils % % Basophils % % Neutrophils # (1.6-8.9) K/mcL Lymphocytes # (0.6-4.6) K/mcL Monocytes # (0.0-1.3) K/mcL Eosinophils # (0.0-0.6) K/mcL Basophils # (0.0-0.2) K/mcL Sodium (136-145) mEq/L Potassium (3.5-5.1) mEq/L Chloride (98-107) mEq/L Carbon Dioxide (23-29) mEq/L BUN (8-23) mg/dL Creatinine (0.60-1.20) mg/dL Est GFR ( Amer) (> 60) Est GFR (Non-Af Amer) (> 60) BUN/Creatinine Ratio (6-26) Glucose (70-105) mg/dL Calculated Osmolality (280-300) Lactic Acid 1.4 (0.5-2.2) mmol/L Calcium (8.6-10.3) mg/dL Phosphorus 3.2 Magnesium 2.0 Total Bilirubin 0.5 Direct Bilirubin 0.1 Indirect Bilirubin 0.4 AST 16 ALT 8 Alkaline Phosphatase 86 Troponin I (< 0.04) ng/mL B-Natriuretic Peptide 145 H (Less than 100) pg/mL Serum Total Protein 6.4 Albumin 3.6 Globulin 2.8 Albumin/Globulin Ratio 1.3 Urine Color (Yellow) Urine Clarity (Clear) Urine pH (5.0-8.0) pH Units Ur Specific [place] (1.010-1.025) Urine Protein (Neg-Trace) mg/dL Urine Glucose (UA) (Normal) mg/dL Urine Ketones (Negative) mg/dL Urine Blood (Negative) Urine Nitrite (Negative) Urine Bilirubin (Negative) Urine Urobilinogen (Normal) mg/dL Ur Leukocyte Esterase (Negative) Urine Microscopic RBC (0-3) per hpf Urine Microscopic WBC (0-3) per hpf Ur Squamous Epith Cells (None-Few) per lpf Urine Bacteria (None-Few) per hpf Hyaline Casts (None-Few) per lpf Ur Culture Indicated? (NO) Specimen Rejected 03/26/17 03/26/17 Range/Units 17:16 17:34 WBC (4.3-11.1) K/mcL RBC (3.82-4.97) M/mcL Hgb (11.5-15.4) g/dL Hct (35.3-44.9) % MCV (83.0-100.0) fL MCH (28.0-33.3) pg MCHC (31.6-35.5) g/dL RDW (11.5-14.5) % Plt Count (140-400) K/mcL MPV (9.4-12.4) fL Immature Gran % (0-4) % Seg Neutrophils % % Lymphocytes % % Monocytes % % Eosinophils % % Basophils % % Neutrophils # (1.6-8.9) K/mcL Lymphocytes # (0.6-4.6) K/mcL Monocytes # (0.0-1.3) K/mcL Eosinophils # (0.0-0.6) K/mcL Basophils # (0.0-0.2) K/mcL Sodium (136-145) mEq/L Potassium (3.5-5.1) mEq/L Chloride (98-107) mEq/L Carbon Dioxide (23-29) mEq/L BUN (8-23) mg/dL Creatinine (0.60-1.20) mg/dL Est GFR ( Amer) (> 60) Est GFR (Non-Af Amer) (> 60) BUN/Creatinine Ratio (6-26) Glucose (70-105) mg/dL Calculated Osmolality (280-300) Lactic Acid (0.5-2.2) mmol/L Calcium (8.6-10.3) mg/dL Phosphorus Magnesium Total Bilirubin Direct Bilirubin Indirect Bilirubin AST ALT Alkaline Phosphatase Troponin I (< 0.04) ng/mL B-Natriuretic Peptide (Less than 100) pg/mL Serum Total Protein Albumin Globulin Albumin/Globulin Ratio Urine Color Dark Yellow (Yellow) Urine Clarity Cloudy A (Clear) Urine pH 6.0 (5.0-8.0) pH Units Ur Specific [place] 1.020 (1.010-1.025) Urine Protein Trace (Neg-Trace) mg/dL Urine Glucose (UA) Normal (Normal) mg/dL Urine Ketones Negative (Negative) mg/dL Urine Blood Trace H (Negative) Urine Nitrite Negative (Negative) Urine Bilirubin Small H (Negative) Urine Urobilinogen Normal (Normal) mg/dL Ur Leukocyte Esterase Negative (Negative) Urine Microscopic RBC 15-30 H (0-3) per hpf Urine Microscopic WBC 3-5 H (0-3) per hpf Ur Squamous Epith Cells Many H (None-Few) per lpf Urine Bacteria Few (None-Few) per hpf Hyaline Casts None Seen (None-Few) per lpf Ur Culture Indicated? NO (NO) Specimen Rejected Hemolyzed - Radiology Data Radiology results reviewed: Yes I reviewed the patient's radiology results. Chest X-Ray 03/26/17 13:55 IMPRESSION: 1. No evidence of acute cardiopulmonary disease. 2. A noncalcified left upper lobe pulmonary nodule is re-identified, similar to the prior exam. D/ / 03/26/2017 15:24:37 [facility] Provider: Amilcar Banda MD Chest CTA 03/26/17 17:39 IMPRESSION: 1. Negative for central pulmonary embolic disease. The examination is slightly limited more peripherally. 2. No evidence of pneumonia. 3. Stable noncalcified bilateral pulmonary nodules. The new right apical nodule seen on the June 2016 exam has resolved. D/ / 03/26/2017 18:51:47 Amilcar Banda MD / [facility] Interpreting Provider: Amilcar Banda MD - EKG Data EKG #1 EKG attestation: Yes I reviewed and interpreted this EKG. EKG results narrative: EKG performed 172 interpreted by myself without cardiology atrial fibrillation with rapid ventricular response 120 beats per minute no ST elevations or depression, no T wave inversion, QRS 73. Attestation Statement - Attestation Attestation: I examined this patient and my medical decision-making was reviewed with the Resident Physician. I agree with the documented findings, disposition and treatment plan as described except to the extent set forth below. A. fib with rapid ventricular response. Rate was responsive to metoprolol. Plan to admit for dyspnea associated with right induced A. fib. Patient met SIRS criteria on arrival and had cough. There was concern for possible pneumonia. The patient was treated with antibiotics. Imaging shows no evidence of infectious source. We will defer de-escalation to the hospitalist team. Patient will need admission for further evaluation.
[2017-03-26] MEDS: 0.9 % Sodium Chloride 1,000 ML IVC SCH ×2 (17:26→19:48)
[2017-03-26] MEDS ORDERED: Ipratropium/Albuterol Neb 3 ML IH ONE (17:44)
[2017-03-26 17:57] LABS: Bilirubin,Urine Small (Negative); Blood,Urine Trace (Negative); Clarity,Urine Cloudy (Clear); Color,Urine Dark Yellow (Yellow); Glucose,Urine (UA) Normal (Normal); Ketones,Urine Negative (Negative); Leukocyte Esterase,Urine Negative (Negative); Nitrite,Urine Negative (Negative); Protein,Urine Trace mg/dL (Neg-Trace); Urobilinogen,Urine Normal (Normal)
[2017-03-26] MEDS ORDERED: *HR* Metoprolol 5 MG/5 ML VIAL IVP ONE (18:00)
[2017-03-26 18:01] LABS: Bacteria,Urine Few per hpf (None-Few); Hyaline Casts,Urine None Seen per lpf (None-Few); RBC,Urine 15-30 per hpf (0-3); Squamous Epithelial Cell,Urine Many per lpf (None-Few)
[2017-03-26 18:58] LABS: Albumin 3.6 g/dL (3.5-5.7); Bilirubin,Direct 0.1 mg/dL (0.0-0.2)
[2017-03-26 19:04] LABS: Albumin/Globulin Ratio 1.3 (1.1-2.2); Globulin 2.8 g/dL (2.4-3.5); Phosphorous 3.2 mg/dL (2.7-4.5); Total Protein 6.4 g/dL (6.4-8.9)
[2017-03-26 19:43] LABS: Bilirubin,Indirect 0.4 mg/dL (0.0-1.2); Bilirubin,Total 0.5 mg/dL (0.3-1.0)
[2017-03-27] MEDS ORDERED: *HR* Metoprolol 5 MG/5 ML VIAL IVP PRN (01:26)
[2017-03-27] MEDS: Metoprolol 100 MG TABLET PO SCH ×3 (01:41→22:39)
[2017-03-27] MEDS ORDERED: Ipratropium/Albuterol Neb 3 ML IH PRN (02:58)
[2017-03-27] MEDS ORDERED: 0.9 % Sodium Chloride 1,000 ML IVC ONE (03:00)
[2017-03-27] MEDS ORDERED: Ondansetron 4 MG/2 ML VIAL IVP PRN (03:02)
[2017-03-27] MEDS ORDERED: Naloxone 0.4 MG/ML INJ IVP PRN (03:02)
[2017-03-27] MEDS ORDERED: *HR* OxyCODONE Immed Rel 5 MG TABLET PO PRN (03:02)
--- NOTE | 2017-03-27 03:07 | Internal Med History&Physical ---
Date of Encounter: 03/27/17 Time of Encounter: 03:05 Assessment and Plan (1) Atrial fibrillation with rapid ventricular response Current visit: Yes Status: Acute A. fib with RVR likely secondary to acute mild COPD exacerbation due to acute bacterial bronchitis Continue metoprolol, use IV metoprolol as needed, consider Cardizem Start Rocephin, prednisone, DuoNeb nebs as needed Omeprazole for GI prophylaxes and subcutaneous heparin for DVT prophylaxis. The patient will be admitted for observation. Full code. Time spent on this admission 40 minutes. 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 Fenton is a 76 year old female with a past medical history of atrial fibrillation treated with metoprolol and aspirin, carcinoid bronchial adenoma/ lung cancer, depression, continue emergency room complaining of congestion and a productive cough for the past week, patient has been bringing up yellowish phlegm. Was found to be in atrial fibrillation with rapid ventricular response at the ER, chest x-ray was unremarkable, CT scan of the chest showed no pulmonary emboli and showed a new right apical nodule. UA shows 30 red blood cells and 5 white blood cells. BNP is 145, heart rate is 128, influenza test was negative. Denies any sick contacts. Was given Levaquin at the emergency room. Denies any other complaints. Past Med Surg Social Fam HX - Past Medical History Medical history: arthritis, atrial fibrillation, GERD, other (Right carcinoid bronchial adenoma/lung cancer followed by Dr. ramírez, depression, influenza being the past, no formal diagnosis of COPD) Psychiatric history: depression - Past Surgical History Surgical History: appendectomy, cholecystectomy, hysterectomy, knee replacement , other - Social History Smoking Status: Former smoker Smokeless Tobacco Status: No Alcohol use: none Drug use: none - Family History Mother Living Status: Hx Family Endocrine Disorder: Yes Hx Family Neurologic Disorders: Yes - Additional Family History Additional family history: Mother with diabetes and father with CHF Internal Medicine - H&P: Meds Aspirin 81 mg PO DAILY 11/18/14 [History] Citalopram [CeleXA] 20 mg PO BID 11/18/14 [History] Hydrochlorothiazide [Microzide] 12.5 mg PO QAM 11/18/14 [History] Metoprolol [Lopressor] 100 mg PO BID 11/18/14 [History] Omeprazole [PriLOSEC] 40 mg PO BID 11/18/14 [History] Tramadol HCl [Ultram] 50 mg PO BID PRN 07/03/16 [History] 3 Allergy/AdvReac Type Severity Reaction Status Date / Time sleep medication AdvReac See Uncoded 01/04/16 15:27 Comments All Systems PM: A 10-system review of systems was performed and is negative for pertinent findings except as documented above in the HPI. Review of systems: Shortness of breath, no chest pain. Other systems out of the 10 reviewed were negative - Constitutional Vitals: Temp Pulse Resp BP Pulse Ox 98.3 F 116 16 101/66 97 03/26/17 23:50 03/26/17 23:50 03/26/17 23:50 03/26/17 23:50 03/26/17 23:50 General appearance: Present: A&O X 3 - Head Head exam: Present: atraumatic, normocephalic - Eye Eye exam: Present: PERRL, conjuntiva pink, sclera anicteric Pupils: Present: PERRL - Neck Neck exam general surgery: Present: supple, trachea midline. Absent: lymphadenopathy - Respiratory Respiratory exam: Present: CTAB, wheezes (Minimal wheezing). Absent: accessory muscle use, rales, rhonchi - Cardiovascular Cardiovascular exam: Present: RRR, +S1, +S2, tachycardia. Absent: diastolic murmur, gallop, rubs, systolic murmur - GI/Abdominal GI/Abdominal exam: Present: normal bowel sounds, soft, no peritoneal signs. Absent: distended, tenderness - Extremities Exam Extremities exam: Present: warm, radial pulses palpable and symmetrical. Absent : calf tenderness, cyanotic, pedal edema - Neurological Exam Neurological exam: Present: CN II-XII intact, oriented X3, no focal deficits. Absent: pronater drift, facial droop, speech deficit - Skin Skin exam: Present: dry, intact Internal Med - H&P Results - Labs CBC & Chem 7: 01/02/18 16:43 03/26/17 16:43
[2017-03-27] MEDS: predniSONE 20 MG TABLET PO SCH (03:38)
[2017-03-27] MEDS: *HR* Heparin 5,000 UNIT/ML VIAL SQ SCH ×2 (04:58→18:46)
[2017-03-27 06:03] LABS: Hemoglobin A1C 5.9 %
[2017-03-27 06:09] LABS: BUN/Creatinine Ratio 13 (6-26); Blood Urea Nitrogen 9 mg/dL (8-23); Calcium 8.7 mg/dL (8.6-10.3); Carbon Dioxide 27 mEq/L (23-29); Chloride 105 mEq/L (98-107); Glucose 114 mg/dL (70-105); Osmolality,Calculated 288 (280-300); Potassium 3.7 mEq/L (3.5-5.1); Sodium 139 mEq/L (136-145); eGFR For African Americans > 60 (> 60); eGFR For Non-African Americans > 60 (> 60)
[2017-03-27] MEDS: cefTRIAXone 1,000 MG in Water for inj. (sterile) 20 ML 10 ML IVPB SCH (08:47)
[2017-03-27] MEDS: hydroCHLOROthiazide 25 MG TABLET PO SCH (08:48)
[2017-03-27] MEDS: Aspirin 81 MG TAB.CHEW PO SCH (08:48)
--- NOTE | 2017-03-27 16:25 | Electrocardiograph Report ---
[address] [place] [address] Test Date: 2017-03-26 Pat Name: Lucy Fenton Department: 103 Room: 2A Gender: F [employer] Set Up Operator: SHAHRIAR : 1940 Requested By: Jorge Vazquez Order Number: [id number] Reading MD: Demetrice Gu Measurements Intervals [place] Rate: 120 P: WA: 0 QRS: 39 QRSD: 73 T: -60 QT: 191 QTc: 262 Interpretive Statements ATRIAL FIBRILLATION WITH RAPID VENTRICULAR RESPONSE NONSPECIFIC ST & T-WAVE ABNORMALITY Electronically Signed On 03-27-2017 16:24:21 EST by Demetrice Gu
--- NOTE | 2017-03-27 19:11 | Event Note ---
Date of Encounter: 03/27/17 Time of Encounter: 11:00 Patient seen by nocturnalist earlier this morning and also by myself We will continue rate control for atrial fibrillation with RVR suspected urinary to COPD exacerbation with bronchitis; continue ceftriaxone with prednisone and DuoNebs.
[2017-03-28] MEDS: *HR* Heparin 5,000 UNIT/ML VIAL SQ SCH ×2 (05:26→18:28)
[2017-03-28] MEDS: Acetaminophen 325 MG TABLET PO PRN (05:26)
[2017-03-28 08:58] LABS: Basophils # 0.1 K/mcL (0.0-0.2); Basophils % 1.4 %; Eosinophils # 0.3 K/mcL (0.0-0.6); Eosinophils % 3.9 %; Hematocrit 43.9 % (35.3-44.9); Hemoglobin 13.7 g/dL (11.5-15.4); Immature Granulocytes % 3.6 % (0-4); Lymphocytes # 2.8 K/mcL (0.6-4.6); Lymphocytes % 32.4 %; Mean Corpuscular HGB Conc 31.2 g/dL (31.6-35.5); Mean Corpuscular Hemoglobin 28.9 pg (28.0-33.3); Mean Corpuscular Volume 92.6 fL (83.0-100.0); Mean Platelet Volume 9.6 fL (9.4-12.4); Monocytes # 0.6 K/mcL (0.0-1.3); Monocytes % 7.2 %; Neutrophils # 4.5 K/mcL (1.6-8.9); Platelet Count 269 K/mcL (140-400); Red Blood Count 4.74 M/mcL (3.82-4.97); Red Cell Distribution Width 14.3 % (11.5-14.5); Segmented Neutrophils % 51.5 %
[2017-03-28] MEDS: Metoprolol 100 MG TABLET PO SCH ×2 (09:12→19:54)
[2017-03-28] MEDS: cefTRIAXone 1,000 MG in Water for inj. (sterile) 20 ML 10 ML IVPB SCH (09:12)
[2017-03-28] MEDS: Aspirin 81 MG TAB.CHEW PO SCH (09:12)
[2017-03-28] MEDS: hydroCHLOROthiazide 25 MG TABLET PO SCH (09:12)
[2017-03-28] MEDS: predniSONE 20 MG TABLET PO SCH (09:12)
[2017-03-28] MEDS: Ipratropium/Albuterol Neb 3 ML IH SCH ×4 (15:39→23:42)
[2017-03-28 16:30] LABS: BUN/Creatinine Ratio 14 (6-26); Blood Urea Nitrogen 11 mg/dL (8-23); Carbon Dioxide 23 mEq/L (23-29); Chloride 108 mEq/L (98-107); Glucose 147 mg/dL (70-105); Osmolality,Calculated 294 (280-300); Potassium 3.5 mEq/L (3.5-5.1); Sodium 141 mEq/L (136-145); eGFR For African Americans > 60 (> 60); eGFR For Non-African Americans > 60 (> 60)
--- NOTE | 2017-03-28 19:06 | Internal Med Progress Note ---
Date of Encounter: 03/29/17 Time of Encounter: 11:00 - Assessment and plan (1) Acute exacerbation of chronic obstructive airways disease Current Visit: No Status: Acute Assessment and plan: -Continue coverage with dual nebs and prednisone (2) Atrial fibrillation with rapid ventricular response Current Visit: Yes Status: Acute Assessment and plan: -Rate controlled on BB (3) Bronchitis Current Visit: Yes Status: Acute Assessment and plan: -We will continue coverage with ceftriaxone and dual nebs - Subjective Interval history: Patient currently on 2 L of nasal cannula in the low 90s and afebrile overnight - Constitutional Vitals: Temp Pulse Resp BP Pulse Ox 97.7 F 97 19 141/80 97 03/28/17 16:25 03/28/17 16:25 03/28/17 16:25 03/28/17 16:25 03/28/17 16:25 General appearance: Present: A&O X 3 - Respiratory Respiratory exam: Present: CTAB. Absent: accessory muscle use, rales, rhonchi, wheezes - Cardiovascular Cardiovascular exam: Present: RRR, +S1, +S2. Absent: diastolic murmur, gallop, rubs, systolic murmur Internal Medicine: Result - Labs CBC & Chem 7: 03/28/17 08:26 03/28/17 08:26 Labs: Short CBC 03/28/17 Range/Units 08:26 WBC 8.7 (4.3-11.1) K/mcL Hgb 13.7 (11.5-15.4) g/dL Hct 43.9 (35.3-44.9) % Plt Count 269 (140-400) K/mcL Neutrophils # 4.5 (1.6-8.9) K/mcL BMP 03/28/17 08:26 Sodium 141 Potassium 3.5 Chloride 108 H Carbon Dioxide 23 BUN 11 Creatinine 0.80 Glucose 147 H Calcium 9.0 Consult Discharge Plan - Plan Referrals: Jessica Heredia CNP [Primary Care Provider] - (web request 03/27/2016)
[2017-03-29] MEDS: Ipratropium/Albuterol Neb 3 ML IH SCH ×5 (03:36→20:15)
[2017-03-29] MEDS: *HR* Heparin 5,000 UNIT/ML VIAL SQ SCH ×2 (04:59→17:40)
[2017-03-29 08:43] LABS: Hematocrit 42.3 % (35.3-44.9); Hemoglobin 13.3 g/dL (11.5-15.4); Mean Corpuscular HGB Conc 31.4 g/dL (31.6-35.5); Mean Corpuscular Volume 92.4 fL (83.0-100.0); Mean Platelet Volume 9.2 fL (9.4-12.4); Nucleated Red Blood Cells 0.2 /100 WBC (0); Platelet Count 303 K/mcL (140-400); Red Blood Count 4.58 M/mcL (3.82-4.97); Red Cell Distribution Width 13.9 % (11.5-14.5)
[2017-03-29 08:57] LABS: BUN/Creatinine Ratio 18 (6-26); Blood Urea Nitrogen 13 mg/dL (8-23); Calcium 9.4 mg/dL (8.6-10.3); Carbon Dioxide 30 mEq/L (23-29); Chloride 103 mEq/L (98-107); Glucose 93 mg/dL (70-105); Osmolality,Calculated 292 (280-300); Potassium 3.5 mEq/L (3.5-5.1); Sodium 141 mEq/L (136-145); eGFR For African Americans > 60 (> 60); eGFR For Non-African Americans > 60 (> 60)
[2017-03-29] MEDS: Metoprolol 100 MG TABLET PO SCH (09:53)
[2017-03-29] MEDS: hydroCHLOROthiazide 25 MG TABLET PO SCH (09:53)
[2017-03-29] MEDS: cefTRIAXone 1,000 MG in Water for inj. (sterile) 20 ML 10 ML IVPB SCH (09:54)
[2017-03-29] MEDS: predniSONE 20 MG TABLET PO SCH (09:54)
[2017-03-29] MEDS: Aspirin 81 MG TAB.CHEW PO SCH (09:54)
[2017-03-29] MEDS: Acetaminophen 325 MG TABLET PO PRN (09:58)
[2017-03-29 14:02] LABS: Eosinophils # 0.2 K/mcL (0.0-0.6); Lymphocytes # 4.4 K/mcL (0.6-4.6); Monocytes # 0.2 K/mcL (0.0-1.3); Neutrophils # 5.7 K/mcL (1.6-8.9); Platelet Estimate Normal (Normal)
[2017-03-29 15:31] VITALS: BP 130/74
--- NOTE | 2017-03-29 17:24 | Discharge Summary ---
Date of Encounter: 03/29/17 Time of Encounter: 11:00 - Discharge Diagnosis (1) Acute exacerbation of chronic obstructive airways disease Priority: Primary Status: Acute (2) Atrial fibrillation with rapid ventricular response Priority: Secondary Status: Acute (3) Bronchitis Priority: Primary Status: Acute - Discharge Medications Prescriptions: Doxycycline 100 mg PO BID #10 capsule predniSONE [PredniSONE] 40 mg PO DAILY #10 tablet Home Medications: Aspirin 81 mg PO DAILY 11/18/14 [History] Citalopram [CeleXA] 20 mg PO BID 11/18/14 [History] Hydrochlorothiazide [Microzide] 12.5 mg PO QAM 11/18/14 [History] Metoprolol [Lopressor] 100 mg PO BID 11/18/14 [History] Omeprazole [PriLOSEC] 40 mg PO BID 11/18/14 [History] Tramadol HCl [Ultram] 50 mg PO BID PRN 07/03/16 [History] Doxycycline 100 mg PO BID #10 capsule 03/29/17 [Rx] predniSONE [PredniSONE] 40 mg PO DAILY #10 tablet 03/29/17 [Rx] Allergies/Adverse Reactions: 3 Allergy/AdvReac Type Severity Reaction Status Date / Time sleep medication AdvReac See Uncoded 01/04/16 15:27 Comments Date of admission: 03/29/17 08:00 Primary care physician: Jessica Heredia CNP - Patient Status Disposition: Home, Self-Care Condition: Good - Discharge Instructions Follow Up With: Jessica Heredia CNP [Primary Care Provider] - (web request 03/27/2016) Hospital course: Patient is a 76-year-old female with past medical history significant for atrial fibrillation treated with metoprolol and aspirin, carcinoid bronchial adenoma/lung cancer and depression who presents to the ER on 03/26/17 due to shortness of breath and cough. She reports that her symptoms were present for approximately one week prior to the admission and decided to come into the ER for evaluation. In the ER patient was found to be in nature fibrillation with RVR; chest x-ray was unremarkable, CT scan of the chest showed no pulmonary emboli and showed a new right apical nodule. Patient was admitted to the medical surgical floor for further evaluation. During patients hospital stay her symptoms of shortness of breath resolved and cough improved on IV ceftriaxone with duo nebs and prednisone. Patient will be discharged to continue a 5 day course of doxycycline and prednisone. She will follow up with her primary care provider. - Time Spent with Patient Total time spent providing and/or coordinating discharge services: Less than 30 minutes - Constitutional Vitals: Temp Pulse Resp BP Pulse Ox 98.4 F 104 17 130/74 95 03/29/17 15:30 03/29/17 15:30 03/29/17 15:30 03/29/17 15:30 03/29/17 15:30 General appearance: Present: A&O X 3 - Respiratory Respiratory exam: Present: CTAB. Absent: accessory muscle use, rales, rhonchi, wheezes - Cardiovascular Cardiovascular exam: Present: RRR, +S1, +S2. Absent: diastolic murmur, gallop, rubs, systolic murmur
[2017-03-30] MEDS: Ipratropium/Albuterol Neb 3 ML IH SCH (00:25)
== END 2017-03-29 19:00 | disposition home or self-care (01) | DRG 192 ==
LOC: EMEROO 13:31 → 2ANU 13:31 → SUATTDRO 22:16 → 2ANU 22:47
PROVIDERS: ADMIT Internal Medicine; ATTEND Hospitalist